=== PATIENT | male | born 1970 | race Caucasian/White ===

== ENCOUNTER 2019-05-31 19:57 | Emergency (ER) | payer SELFPAY ==
--- NOTE | 2019-05-31 20:03 | NUR ---
called out no answer
== END 2019-05-31 20:09 | disposition left against medical advice (07) ==
LOC: EMR 20:08
DX: Z53.21 Procedure and treatment not carried out due to patient leaving prior to being seen by health care provider (principal); J45.909 Unspecified asthma, uncomplicated